=== PATIENT | female | born 1955 ===

== ENCOUNTER 2024-12-18 06:12 | Day surgery (SDC) | payer OTHER, SELFPAY ==
[2024-12-18 10:08] LABS: Glucose - Point of Care 155 mg/dl (70-99)
== END 2024-12-18 11:42 | disposition home or self-care (01) ==
LOC: GI 06:12
PROVIDERS: ATTENDING PHYSICIAN Internal Medicine
DX: K74.60 Unspecified cirrhosis of liver (principal); K29.70 Gastritis, unspecified, without bleeding; I85.10 Secondary esophageal varices without bleeding; K29.40 Chronic atrophic gastritis without bleeding; K31.A19 Gastric intestinal metaplasia without dysplasia, unspecified site
CPT/HCPCS: 43239; 82962; 88305; 88342